=== PATIENT | male | born 1995 | race Caucasian/White ===

== ENCOUNTER → 2024-11-06 07:43 | Outpatient (REF) | payer OTHER, SELFPAY | LOC: HWRAD 07:43 | PROVIDERS: ATTENDING PHYSICIAN Otolaryngology Facial Plastic Surgery; FAMILY PHYSICIAN Internal Medicine | DX: J30.1 Allergic rhinitis due to pollen (principal); J33.1 Polypoid sinus degeneration; J34.3 Hypertrophy of nasal turbinates | CPT/HCPCS: 70486 ==

== ENCOUNTER 2025-07-24 15:27 | Emergency (ER) | payer OTHER, SELFPAY ==
[2025-07-24 15:37] VITALS: BP 119/85
[2025-07-24 15:59] LABS: Hematocrit 44.9 % (39.0-52.0); Hemoglobin 15.5 g/dL (13.0-18.0); Mean Corp Hgb Conc. 34.5 g/dL (33.0-37.0); Mean Corpuscular Volume 86.3 fL (80.0-94.0); Nucleated Red Blood Cells % 0 % (-); Platelet Count 269 10^3/uL (130-400); Red Cell Dist. Width 12.3 % (11.5-14.5)
--- NOTE | 2025-07-24 16:04 | ED.GENMED ---
History of Present Illness
General
Chief Complaint: Visual Problem
Time Seen by Provider: 07/24/25 16:03
History of Present Illness
History of Present Illness:
FOCUSED PAST MEDICAL HISTORY
- Asthma, bilateral PRK
REVIEW OF OLD RECORDS
- I reviewed records, there were no admissions to the hospital but has had several ED visits in the past
RADIOLOGY
-
EKG
-
LABS
- White count 11.7
UPDATE
-
Past History
Past History
ED Past Medical History: Asthma (as child); Negative HTN, Hypercholesterolemia, IDDM or NIDDM
ED Past Surgical History: None
Social History
Tobacco: Non-smoker
Alcohol: Occasional
Personal: Single
Living: with family
Employment: Employed
Family History
Family History: Negative Early CAD or Sudden
Course
Orders/Labs/Results
Orders:
Orders
07/24/25 15:47
CMP [Comprehensive Metabolic Panel] Urgent
Complete Blood Count/With Diff Urgent
Abnormal Lab Results
07/24/25
15:47
WBC 11.7 H 10^3/uL
(4.8-10.8)
Absolute Neuts (auto) 8.1 H 10^3/uL
(1.4-6.5)
Absolute Monos (auto) 0.8 H 10^3/uL
(0.1-0.6)
07/24/25 15:47
Vital Signs
Initial and Last Documented VS:
Initial Vital Signs
Temp Pulse Resp BP Pulse Ox
37.3 C 100 18 119/85 98
07/24/25 15:37 07/24/25 15:37 07/24/25 15:37 07/24/25 15:37 07/24/25 15:37
Last Documented Vital Signs
Temp Pulse Resp BP Pulse Ox
37.3 C 100 18 119/85 98
07/24/25 15:37 07/24/25 15:37 07/24/25 15:37 07/24/25 15:37 07/24/25 16:05
*Pulse Oximetry
SaO2: 98
Oxygen Mode of Delivery: Room air
ED Attending Note
-
Portions of this chart may have been created with voice recognition software.� Occasional wrong word or��sound alike� substitutions may have occurred due to the inherent limitations of voice recognition software.
Discharge Plan
Departure
Prescriptions:
No Action
albuterol sulfate [Proventil HFA] 90 MCG/PUFF HFA aerosol inhaler
2 puff inhalation Q4HPRN PRN (Reason: shortness of breath) Qty: 1 0RF
Rx Instructions:
please give spacer to use w/ inhaler
prednisone 10 MG tablet
10 mg PO .TAPER Qty: 24 0RF
Rx Instructions:
Take 40mg daily x3days, 30mg daily x2days,
20mg daily x2days, 10mg daily x2days.
Referrals:
Mamadou Young MD [Family Provider, Internal Medicine]
Interventions
Interventions:
*Risk Screen - Suicide Last Done: 07/24/25 15:37
*General Assessment Last Done: 07/24/25 15:37
*Neglect/Abuse Screening Last Done: 07/24/25 15:37
*ED COVID-19 Vaccine History Last Done: 07/24/25 15:37
*ED Influenza Vaccine History Last Done: 07/24/25 15:37
Discharge Date and Time
Print Language: CROATIAN
[2025-07-24 16:16] LABS: ALT (SGPT) 21 U/L (0-50); AST (SGOT) 25 U/L (17-59); Albumin 4.9 g/dl (3.5-5.0); Alkaline Phosphatase 58 U/L (38-126); Blood Urea Nitrogen 18 mg/dl (9-20); Calcium 9.6 mg/dl (8.4-10.2); Carbon Dioxide 28 mmol/L (22-30); Chloride 105 mmol/L (98-107); Glucose 129 mg/dl (70-99); Potassium 4.3 mmol/L (3.5-5.1); Sodium 139 mmol/L (135-145); Total Protein 7.6 g/dl (6.3-8.2); eGFR > 60.00
--- NOTE | 2025-07-24 18:20 | ED.GENMED ---
History of Present Illness
General
Chief Complaint: Visual Problem
Time Seen by Provider: 07/24/25 16:03
History of Present Illness
History of Present Illness:
FOCUSED PAST MEDICAL HISTORY
- Asthma, had PRK bilateral
REVIEW OF OLD RECORDS
- The patient has had ED visits over the last several years but no admissions to [facility]
Note:
CHIEF COMPLAINT(S)
Visual disturbances, described as floaters in vision.
HISTORY OF PRESENT ILLNESS
The patient is a 29-year-old male who presented to the emergency department with complaints of visual disturbances described as 'floaters' starting at around 11 a.m. today while watching television. The symptoms began as small and then enlarged over
time but were noted to improve by the time of the evaluation. The patient experienced bright, jagged, C-shaped visual disturbances, with some color changes and surrounding blurring, though no flashes of light were mentioned. The symptoms lasted
about 10-15 minutes and have since resolved. The patient underwent LASIK surgery several years ago for corrective vision and uses glasses for support. He denies any previous episodes of similar visual symptoms prior to this morning. He also denies
any pain, weakness, or other neurological symptoms concurrent with the episode. The patient mentions a history of anxiety with occasional breathing difficulties and is just returning to gym activities, which he feels have improved his breathing.
PAST MEDICAL AND SURGICAL HISTORY
The patient has a history of LASIK surgery performed for corrective vision.
SOCIAL DETERMINANTS AFFECTING HEALTH
The patient reported attending the gym, indicating physical activity as part of their routine. There is also a mention of anxiety impacting breathing.
REVIEW OF SYSTEMS
- Ocular: Visual disturbances described as floaters, bright jagged C-shaped lines with color changes and surrounding blurring, no flashes of light. No current symptoms.
- Musculoskeletal: Wrist pain and discomfort reported in the last few weeks, resolved at present.
- Neurological: Denies any weakness or paresthesia.
PHYSICAL EXAM
General: Alert, no acute distress.
Skin: Warm, dry.
Head: Normocephalic, atraumatic.
Neck: Supple, trachea midline.
Eye, Ears, Nose, Mouth, and Throat: Oral mucosa moist. Visual ravi intact upon confrontation. Limited funduscopic exam unremarkable.
Cardiovascular: Normal peripheral perfusion, no edema.
Respiratory: Respirations are non-labored.
Gastrointestinal: Abdomen nondistended.
Back: Normal range of motion, normal alignment.
Musculoskeletal: Normal range of motion, normal strength.
Neurological: Alert and oriented to person, place, time, and situation, no focal neurological deficit observed.
Psychiatric: Cooperative, appropriate mood and affect.
PROBLEM LIST
- Acute visual disturbances ('floaters').
- History of anxiety with breathing difficulties.
PLAN
- Referral to an solar design engineer for a comprehensive eye examination to rule out any underlying ocular pathology.
- Patient reassured and educated on possible benign nature of floaters and the lack of alarming findings at present.
- Discharge with solar design engineer follow-up arranged to further assess and monitor vision changes.
DIFFERENTIAL DIAGNOSIS
The Differential Diagnosis includes, in no particular order and is not limited to:
1. Ocular migraine
2. Posterior vitreous detachment
3. Retinal detachment
4. Vitreous hemorrhage
5. Transient ischemic attack (TIA)
6. Retinal tear
7. Vascular occlusion
8. Hypertension-related visual changes
9. Anxiety-induced visual disturbances
10. Migraine with aura
SUMMARY OF ENCOUNTER
The patient, a 29-year-old male, presented to the emergency department with complaints of visual disturbances described as 'floaters' in the vision. These symptoms began earlier in the day, characterized by bright, jagged, C-shaped lines with color
changes and were accompanied by surrounding blurring. The episode lasted approximately 10-15 minutes and resolved prior to evaluation. The ophthalmological examination was unremarkable, showing no visible field cuts or concerning findings at present.
DISPOSITION
Discharge.
PLAN
The patient is referred to an solar design engineer for a comprehensive eye examination to rule out any underlying ocular pathology. He was reassured about the possible benign nature of the symptoms and given information concerning the need for follow-up
with the solar design engineer arranged to assess and monitor any further vision changes.
MANAGEMENT OF THE PATIENTS CARE WAS DISCUSSED WITH
Contact was made with the on-call solar design engineer, Dr. Prince Marquez, to arrange outpatient follow-up.
PATIENT EDUCATION AND COUNSELING
The patient was educated on the likely benign nature of the visual disturbances and advised to attend the follow-up appointment with the solar design engineer to ensure resolution and assess any potential underlying causes.
FOLLOW-UP INSTRUCTIONS
The patient is to follow up with an solar design engineer as an outpatient for further assessment and monitoring of any visual changes.
MEDICAL DECISION MAKING
1. Number and Complexity of Problems Addressed: Chronic conditions affecting care include history of LASIK surgery and anxiety with breathing difficulties. The differential diagnosis includes ocular migraine, posterior vitreous detachment, retinal
detachment, vitreous hemorrhage, transient ischemic attack (TIA), retinal tear, vascular occlusion, hypertension-related visual changes, anxiety-induced visual disturbances, migraine with aura.
2. Data:
Category 3
Discussion of management with other physician: Contact was made with Dr. Prince Marquez, on-call solar design engineer, for arranging the patients outpatient follow-up. She suggest the possibility of ocular migraine.
3. Risk:
Consideration of Admission/Observation: Escalation of care, including admission/observation, was considered given the complexity and risk of the patients presenting complaint, exam findings, and/or underlying comorbidities. However, ultimately, I
feel the patient is safe for outpatient management with close follow-up. Reasoning: Work-up is reassuring, does not reveal any acute life/organ-threatening processes, patients symptoms are well controlled upon re-evaluation, reexamination is
reassuring, vitals are stable, patient agreeable with discharge, and reliable for follow-up.
DIAGNOSIS
-Visual disturbance, unspecified (H53.9)
LABS
- White count 11.7, hemoglobin normal, chemistries unremarkable
Past History
Past History
ED Past Medical History: Asthma (as child); Negative HTN, Hypercholesterolemia, IDDM or NIDDM
ED Past Surgical History: None
Social History
Tobacco: Non-smoker
Alcohol: Occasional
Personal: Single
Living: with family
Employment: Employed
Family History
Family History: Negative Early CAD or Sudden
Phy Exam
Physical Exam
Physical Exam:
See HPI
Course
Orders/Labs/Results
Orders:
Orders
07/24/25 15:47
CMP [Comprehensive Metabolic Panel] Urgent
Complete Blood Count/With Diff Urgent
Abnormal Lab Results
07/24/25
15:47
WBC 11.7 H 10^3/uL
(4.8-10.8)
Absolute Neuts (auto) 8.1 H 10^3/uL
(1.4-6.5)
Absolute Monos (auto) 0.8 H 10^3/uL
(0.1-0.6)
Glucose 129 H mg/dl
(70-99)
07/24/25 15:47
07/24/25 15:47
Vital Signs
Initial and Last Documented VS:
Initial Vital Signs
Temp Pulse Resp BP Pulse Ox
37.3 C 100 18 119/85 98
07/24/25 15:37 07/24/25 15:37 07/24/25 15:37 07/24/25 15:37 07/24/25 15:37
Last Documented Vital Signs
Temp Pulse Resp BP Pulse Ox
37.3 C 100 18 119/85 98
07/24/25 15:37 07/24/25 15:37 07/24/25 15:37 07/24/25 15:37 07/24/25 18:23
*Pulse Oximetry
SaO2: 98
Oxygen Mode of Delivery: Room air
Patient hypoxic: no
*Critical Care Note
Total Time (30-74mins, 75-104mins- exclusive of procedures): Not Applicable
ED Attending Note
-
Portions of this chart may have been created with voice recognition software.� Occasional wrong word or��sound alike� substitutions may have occurred due to the inherent limitations of voice recognition software.
Discharge Plan
Departure
Patient Disposition: Home (Routine Discharge)
Date of Disposition: 07/24/25
Time of Disposition: 18:37
Patient with high blood pressure during this ER visit?: Yes
Discharge Problem:
Floaters
Prescriptions:
No Action
albuterol sulfate [Proventil HFA] 90 MCG/PUFF HFA aerosol inhaler
2 puff inhalation Q4HPRN PRN (Reason: shortness of breath) Qty: 1 0RF
Rx Instructions:
please give spacer to use w/ inhaler
prednisone 10 MG tablet
10 mg PO .TAPER Qty: 24 0RF
Rx Instructions:
Take 40mg daily x3days, 30mg daily x2days,
20mg daily x2days, 10mg daily x2days.
Referrals:
Mamadou Young MD [Family Provider, Internal Medicine]
Alberta Marquez MD [Active, Ophthalmology]
Activity Restrictions/Additional Instructions:
I sent a message to the on-call solar design engineer. She thought that maybe you had an ocular migraine and did not feel that you needed much more workup however if you have ongoing concerns, call their office for follow-up.
Interventions
Interventions:
*Risk Screen - Suicide Last Done: 07/24/25 15:37
*General Assessment Last Done: 07/24/25 15:37
*Neglect/Abuse Screening Last Done: 07/24/25 15:37
*ED COVID-19 Vaccine History Last Done: 07/24/25 15:37
*ED Influenza Vaccine History Last Done: 07/24/25 15:37
Discharge Date and Time
Print Language: [place] IR[place]
== END 2025-07-24 19:00 | disposition home or self-care (01) ==
LOC: EMR 15:27
PROVIDERS: EMERGENCY PHYSICIAN Emergency Medicine; FAMILY PHYSICIAN Internal Medicine
DX: H43.399 Other vitreous opacities, unspecified eye (principal); H53.9 Unspecified visual disturbance; J45.909 Unspecified asthma, uncomplicated
CPT/HCPCS: 99283; 80053; 85025